=== PATIENT | male | born 1955 | race Hispanic/Latino ===

== ENCOUNTER 2017-02-18 10:06 | Inpatient (IN) | payer BC ==
[2017-02-18 10:15] VITALS: BMI 47.2
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
[2017-02-18 10:46] LABS: BASO # 0.01 K/mm3 (0.0-2.0); BASO % 0.2 % (0.0-3.0); EOS % 0.2 % (1.5-5.0); GRAN # 5.59 (1.4-6.5); GRAN % 88.8 % (50.0-68.0); LYMPH # 0.2 (1.2-3.4); LYMPH % 2.5 % (22.0-35.0); MEAN CELL VOLUME 94.7 fl (80.0-105.0); MEAN CORPUSCULAR HGB CONC 33.8 g/dl (31.0-37.0); MEAN PLATELET VOLUME 10.8 fl (7.0-11.0); MONO # 0.5 (0.1-0.6); MONO % 8.3 % (1.0-6.0); PLATELET COUNT 120 10^3/uL (120.0-450.0); RBC 4.37 10^6/uL (3.5-6.1); RED CELL DISTRIBUTION WIDTH 15.1 % (11.5-14.5); WHITE BLOOD COUNT 6.3 10^3/ul (4.5-11.0)
[2017-02-18 10:47] LABS: VENOUS BLOOD GAS BASE EXCESS -0.2 mmol/L (0.0-2.0); VENOUS BLOOD GAS PO2 108 mm/Hg (30-55); VENOUS BLOOD PH 7.47 (7.32-7.43)
[2017-02-18 10:56] LABS: INR 1.11 (0.93-1.08); PARTIAL THROMBOPLASTIN TIME 23.5 Seconds (23.7-30.8)
[2017-02-18] MEDS ORDERED: Sodium Chloride 0.9% 1,000 ML IV STA (11:06)
[2017-02-18] MEDS ORDERED: Vancomycin 1gm in NS 250ml 1 GM/250 ML BAG IVPB STA (11:09)
[2017-02-18] MEDS ORDERED: Piperacillin/Tazobact 3.375 gm 100 ML IVPB STA (11:09)
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
[2017-02-18 11:21] LABS: ALB/GLOB RATIO 1.1 (1.1-1.8); ALBUMIN 3.5 g/dL (3.0-4.8); CALCIUM 8.6 mg/dL (8.4-10.5); MAGNESIUM 1.5 mg/dL (1.7-2.2)
[2017-02-18] MEDS ORDERED: Potassium & Sodium Phosphate PO STA (11:29)
[2017-02-18 11:45] LABS: URINE BILIRUBIN SMALL (NEGATIVE); URINE BLOOD TRACE-LYSED (NEGATIVE); URINE GLUCOSE (UA) NEGATIVE (NEGATIVE); URINE LEUKOCYTE ESTERASE MODERATE Leu/uL (NEGATIVE); URINE NITRATE NEGATIVE (NEGATIVE); URINE PROTEIN 100 mg/dL (<30 mg/dL); URINE UROBILINOGEN 0.2 E.U./dL (<1 E.U./dL)
[2017-02-18 11:46] LABS: URINE APPEARANCE SL CLOUDY (CLEAR); URINE COLOR YELLOW (YELLOW)
[2017-02-18 12:04] LABS: URINE BACTERIA MANY (NEG); URINE EPITHELIAL CELLS 0 - 2 /hpf (0-5); URINE RBC 0 - 2 /hpf (0-2)
[2017-02-18 12:15] LABS: TROPONIN I 0.12 ng/mL
[2017-02-18 13:26] LABS: VENOUS BLOOD GAS BASE EXCESS -3.6 mmol/L (0.0-2.0); VENOUS BLOOD GAS PO2 153 mm/Hg (30-55); VENOUS BLOOD PH 7.39 (7.32-7.43)
[2017-02-18] MEDS ORDERED: Magnesium Sulfate 1 gm in D5W 1 GM/100 ML BAG IVPB ONE (13:28)
[2017-02-18] MEDS ORDERED: Potassium Chloride 20 mEq ER Tab PO STA (13:28)
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
--- NOTE | 2017-02-18 15:56 | CARD ---
APPROVED REPORT EKG Measurement Heart [id number] <Conclusion> Sinus tachycardia Nonspecific ST abnormality Abnormal ECG
[2017-02-18] MEDS ORDERED: Pneumococcal 23-Valent Vaccine IM ONE (17:23)
--- NOTE | 2017-02-18 19:42 | PCM.SEPTIC ---
Sepsis Progress Note - Reassessment Type Date of Evaluation: 02/18/17 Time of Evaluation: 17:40 Reassessment Type: Non-invasive reassessment - Non Invasive Reassessment Were the most recent vital sign reviewed: Yes Vital Sign (Latest): Temp Pulse Resp BP Pulse Ox 100.0 F H 93 H 18 104/59 L 96 02/18/17 18:00 02/18/17 18:00 02/18/17 18:00 02/18/17 18:00 02/18/17 14:50 Cardiovascular: Yes: Regular Rate, Rhythm Respiratory: Yes: Decreased Breath Sounds (decreased breath sounds at left base) . No: Respiratory Distress Capillary Refill: Normal (Less than 2 sec) Pulses: Normal Dorsalis Pedis Skin: Normal Color, Warm, Dry
[2017-02-18] MEDS: Piperacillin/Tazobact 3.375 gm 100 ML IVPB SCH (23:48)
[2017-02-19 05:49] LABS: VENOUS BLOOD GAS PO2 52 mm/Hg (30-55); VENOUS BLOOD PH 7.29 (7.32-7.43)
[2017-02-19] MEDS: Piperacillin/Tazobact 3.375 gm 100 ML IVPB SCH ×4 (05:56→23:45)
[2017-02-19] MEDS: Pantoprazole 40 mg EC Tab PO SCH (05:56)
[2017-02-19] MEDS: Potassium Chloride 10 mEq ER Tab PO SCH (08:35)
--- NOTE | 2017-02-19 09:06 | CT ---
PROCEDURE: CT Abdomen and Pelvis without intravenous contrast HISTORY: r/o obstruction COMPARISON: None. TECHNIQUE: Technique. Contrast Dose: Radiation dose: Total exam DLP = 1756 mGy-cm. This CT exam was performed using one or more of the following dose reduction techniques: Automated exposure control, adjustment of the mA and/or kV according to patient size, and/or use of iterative reconstruction technique. FINDINGS: LOWER THORAX: Unremarkable. Elevated right hemidiaphragm LIVER: Unremarkable. No gross lesion or ductal dilatation. GALLBLADDER AND BILE DUCTS: Status post cholecystectomy and gastric sleeve surgery.. PANCREAS: Unremarkable. No gross lesion or ductal dilatation. SPLEEN: Unremarkable. ADRENALS: Unremarkable. No mass. KIDNEYS AND URETERS: Unremarkable. No hydronephrosis. No solid mass. VASCULATURE: Unremarkable. No aortic aneurysm. BOWEL: Unremarkable. No obstruction. No gross mural thickening. APPENDIX: Unremarkable. Normal appendix. PERITONEUM: Unremarkable. No free fluid. No free air. LYMPH NODES: Multiple mildly enlarged lymph nodes along the right hemipelvis associated mild inflammatory changes extending into the right groin and inguinal region which are nonspecific in etiology; please correlate clinically. BLADDER: Unremarkable. REPRODUCTIVE: Unremarkable. BONES: No acute fracture. OTHER FINDINGS: None. IMPRESSION: Multiple mildly enlarged lymph nodes along the right hemipelvis associated mild inflammatory changes extending into the right groin and inguinal region which are nonspecific in etiology; please correlate clinically.
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
[2017-02-19 10:22] LABS: VENOUS BLOOD GAS BASE EXCESS -5.7 mmol/L (0.0-2.0); VENOUS BLOOD GAS PO2 150 mm/Hg (30-55); VENOUS BLOOD PH 7.29 (7.32-7.43)
[2017-02-19] MEDS: Potassium & Sodium Phosphate PO SCH ×3 (10:34→18:02)
[2017-02-19] MEDS: FOLIC ACID 0.4 MG PO SCH (10:46)
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
[2017-02-20] MEDS ORDERED: Potassium Phosphate 3 mmol/ml Inj IV ONE (00:12)
[2017-02-20] MEDS ORDERED: Magnesium Sulfate 1 gm in D5W 1 GM/100 ML BAG IVPB ONE (00:13)
[2017-02-20] MEDS ORDERED: Potassium Phosphate 30 MMOLE in Sodium Chloride 0.9% 250 ML IVPB ONE (00:30)
[2017-02-20 01:40] LABS: BARBITURATES, UR NEGATIVE (NEGATIVE); BENZODIAZEPINES, UR NEGATIVE (NEGATIVE); OPIATES, UR NEGATIVE (NEGATIVE); PHENCYCLIDINE, UR NEGATIVE (NEGATIVE)
[2017-02-20] MEDS: Pantoprazole 40 mg EC Tab PO SCH (06:06)
[2017-02-20] MEDS: Piperacillin/Tazobact 3.375 gm 100 ML IVPB SCH ×2 (06:07→13:16)
[2017-02-20 06:53] LABS: MEAN CELL VOLUME 95.6 fl (80.0-105.0); MEAN CORPUSCULAR HEMOGLOBIN 33.3 pg (25.0-35.0); MEAN CORPUSCULAR HGB CONC 34.9 g/dl (31.0-37.0); MEAN PLATELET VOLUME 12.1 fl (7.0-11.0); RBC 3.6 10^6/uL (3.5-6.1); RED CELL DISTRIBUTION WIDTH 15.6 % (11.5-14.5); WHITE BLOOD COUNT 10.5 10^3/ul (4.5-11.0)
[2017-02-20 07:22] LABS: BLOOD UREA NITROGEN 28 mg/dL (7-21); CALCIUM 7.6 mg/dL (8.4-10.5); GFR AFRICAN-AMERICAN > 60; GFR NON-AFRICAN AMERICAN 51; HDL CHOLESTEROL 26 mg/dL (29-60)
[2017-02-20 07:26] LABS: % IRON SATURATION 7 % (20-55); IRON 14 ug/dL (45-180); TOTAL IRON BINDING CAPACITY 210 ug/dL (261-462)
[2017-02-20 07:33] LABS: LDL CHOLESTEROL < 30 mg/dL (0-129)
[2017-02-20] MEDS: Potassium Chloride 10 mEq ER Tab PO SCH (08:33)
[2017-02-20] MEDS: Potassium & Sodium Phosphate PO SCH ×3 (11:00→17:47)
[2017-02-20] MEDS: Enoxaparin 40 mg Syringe SC SCH (11:01)
[2017-02-20] MEDS: FOLIC ACID 0.4 MG PO SCH (11:02)
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
[2017-02-20 12:27] LABS: FOLATE 5.3 ng/mL
--- NOTE | 2017-02-20 13:13 | PCM.EEG ---
Electroencephalogram Report - Electroencephalogram Report Procedure Date: 02/20/17 Interpretation: Indication: Loss of consciousness with confusion. Medications: Reviewed. Condition: Awake and drowsy. Technical: This is a digitally recorded electroencephalogram. The international 10-20 electrode placement system is used for scalp electrode placement. Eighteen channels of scalp EEG are recorded Another channel was used for for ECG. The data are stored digitally and reviewed in reformatted montages for optimal display. Background : 9 to 10 hertz alpha activity was seen. Maximal over the posterior head region. These activities are symmetric on both sides. They attenuated with eye opening. Small amount of beta activities are seen. Stage I sleep was noted, but stage II sleep was not achieved. There was no change with photic stimulation. Impression: Focal abnormality: Periodic lateralized discharge was seen. Mainly over the Left temporal area. This consisted of spike and sharp wave discharges. Impression: This EEG is abnormal. Epileptiform discharge was seen. This can represent a potential seizure focus. Clinical correlation is needed.
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
--- NOTE | 2017-02-20 13:48 | PN ---
DATE: 02/20/2017 PULMONARY PROGRESS NOTE REFERRING PHYSICIAN: Dr. Hernandez. SUBJECTIVE: He is out of bed to chair, could not use BiPAP at nighttime yesterday. No nausea, vomiting, or diarrhea. Does have a leg swelling. OBJECTIVE: GENERAL: In no acute distress. VITAL SIGNS: Temp is 98, heart rate is 69, respiratory rate is 20, blood pressure 128/78, pulse ox 96% on room air. HEENT: Moist mucous membranes. Crowded airway. Mallampati score is IV. NECK: Supple. No JVD. LUNGS: Fair airflow with rhonchi. HEART: S1 and S2. ABDOMEN: Soft and nontender. Obese. EXTREMITIES: There is no edema. NEUROLOGIC: Awake and alert. Follows simple command. MEDICATIONS: He is on aspirin 81 mg daily, ferrous sulfate 325 mg twice a day, potassium 10 mEq daily, Lasix 20 mg twice daily, Lovenox 40 mg subcu daily, Neutra-Phos 1 pack 3 times a day, Protonix 40 mg daily, Tylenol p.r.n. basis, Zosyn 3.375 g IV q. 6 hours and allopurinol 300 mg daily. LABORATORY DATA: Shows hemoglobin 12.0, hematocrit 34.4, WBC 10.5, platelet count is 104. Sodium 141, potassium 3.9, chloride 109, bicarbonate is 24, BUN 28, creatinine 1.4, glucose is 74, calcium is 7.6, iron is 14, cholesterol is 66, B12 is 509 and folate is 5.3. Microbiology: Blood culture has a strep agalactiae group B. Urine culture has no growth. Echocardiogram is done, report is pending. IMPRESSION AND PLAN: Bacteriemia, renal insufficiency, morbid obesity, sleep apnea syndrome, coronary artery disease, history of gastric bypass surgery in the past, on antibiotics, fall precautions, encourage BiPAP use overnight, gastric prophylaxis and DVT prophylaxis. We will follow up with you. Nidia Beckman MD
--- NOTE | 2017-02-20 15:31 | CP.PCM.PN ---
Subjective - Date & Time of Evaluation Date of Evaluation: 02/20/17 Time of Evaluation: 08:50 - Subjective Subjective: Comfortable, not in distress, afebrile, had some scratches on his right leg ( posterior portion) but they are healing. Objective - Vital Signs/Intake and Output Vital Signs (last 24 hours): Temp Pulse Resp BP Pulse Ox 97.8 F 67 20 129/65 96 02/20/17 06:00 02/20/17 06:00 02/20/17 06:00 02/20/17 06:00 02/20/17 06:00 Intake and Output: 02/20/17 02/20/17 06:59 18:59 Intake Total 1125 Output Total 800 Balance 325 - Medications Medications: Current Medications Acetaminophen (Tylenol 325mg Tab) 650 mg PO Q6H PRN PRN Reason: Fever >100.4 F Last Admin: 02/18/17 23:48 Dose: 650 mg Allopurinol (Zyloprim) 300 mg PO DAILY [facility] Last Admin: 02/19/17 10:34 Dose: 300 mg Aspirin (Aspirin Chewable) 81 mg PO DAILY [facility] Last Admin: 02/19/17 10:35 Dose: 81 mg Enoxaparin Sodium (Lovenox) 40 mg SC DAILY [facility] PRN Reason: Protocol Ferrous Sulfate (Feosol) 324 mg PO BID [facility] Last Admin: 02/19/17 18:04 Dose: 324 mg Furosemide (Lasix) 40 mg PO BID [facility] Last Admin: 02/19/17 18:01 Dose: Not Given Home Med (Home Med) 1 unit PO DAILY [facility] Last Admin: 02/19/17 10:46 Dose: Not Given Piperacillin Sod/Tazobactam Sod (Zosyn 3.375 In Ns 100ml) 100 mls @ 200 mls/hr IVPB Q6 [facility] PRN Reason: Protocol Stop: 02/26/17 00:01 Last Admin: 02/20/17 06:07 Dose: 200 mls/hr Pantoprazole Sodium (Protonix Ec Tab) 40 mg PO 0600 [facility] Last Admin: 02/20/17 06:06 Dose: 40 mg Potassium Chloride (Klor-Con 10) 10 meq PO BRK [facility] Last Admin: 02/20/17 08:33 Dose: 10 meq Potassium Phos/Sodium Phos (Neutra-Phos) 1 pkt PO TID [facility] Last Admin: 02/19/17 18:02 Dose: 1 pkt - Labs Labs: 02/20/17 06:15 02/20/17 06:15 PT 12.0 Seconds (9.9-11.8) H 02/18/17 10:30 INR 1.11 (0.93-1.08) H 02/18/17 10:30 APTT 23.5 Seconds (23.7-30.8) L 02/18/17 10:30 - Constitutional Appears: Non-toxic, No Acute Distress - Head Exam Head Exam: NORMAL INSPECTION - ENT Exam ENT Exam: Mucous Membranes Moist - Neck Exam Neck Exam: absent: Lymphadenopathy, Meningismus - Respiratory Exam Respiratory Exam: Decreased Breath Sounds - Cardiovascular Exam Cardiovascular Exam: +S1, +S2 - GI/Abdominal Exam GI & Abdominal Exam: Soft. absent: Tenderness - Extremities Exam Additional comments: posterior right leg with some scratches that are healing Assessment and Plan - Assessment and Plan (Free Text) Plan: Assessment Severe Sepsis with acute renal failure due to Group B Strep bacteremia, source to be determined obesity with BMI 34 Plan follow up repeat blood cx done today; will switch antibiotics to Cefazolin follow up 2D echo results will trend fever curve and continue to monitor clinically
[2017-02-20] MEDS: ceFAZolin 2 GM in Sodium Chloride 0.9% 100 ML IVPB SCH ×2 (17:42→21:39)
--- NOTE | 2017-02-20 18:08 | CARD ---
APPROVED REPORT EXAM: Two-dimensional and M-mode echocardiogram with Doppler and color Doppler. INDICATION Infection:Rule out subacute bacterial endocarditis 2D DIMENSIONS Left Atrium (2D)4.4 (1.6-4.0cm)IVSd1.2 (0.7-1.1cm) LVDd5.2 (3.9-5.9cm)PWd1.1 (0.7-1.1cm) LVDs3.4 (2.5-4.0cm)FS (%) 34.8 % LVEF (%)63.7 (>50%) M-Mode DIMENSIONS Aortic Root2.70 (2.2-3.7cm)Aortic Cusp Exc.2.00 (1.5-2.0cm) Aortic Valve AoV Peak Cdkgjzgp166.0cm/Les Peak GR.7mmHg Mitral Valve MV E Yfqwxnpq45.7cm/sMV A Nryedbka29.1cm/sE/A ratio1.9 TDI E/Lateral E'0.0E/Medial E'0.0 Tricuspid Valve TR Peak Vowioual293hs/sRAP [id number] Peak Gr.15mmHg [id number] LEFT VENTRICLE The left ventricle is normal size. There is borderline to mild concentric left ventricular hypertrophy. The left ventricular function is normal.EF-60-65% There is normal LV segmental wall motion. The left ventricular diastolic function is normal. No left ventricle thrombus noted on this study. There is no ventricular septal defect visualized. There is no left ventricular aneurysm. There is no mass noted in the left ventricle. RIGHT VENTRICLE The right ventricle is normal size. There is normal right ventricular wall thickness. The right ventricular systolic function is normal. ATRIA The left atrium is mildly dilated. The right atrium size is normal. The interatrial septum is intact with no evidence for an atrial septal defect. AORTIC VALVE The aortic valve is thickened but opens well. No aortic regurgitation is present. There is no aortic valvular stenosis. There is no aortic valvular vegetation. MITRAL VALVE The mitral valve is thickened but opens well. Mitral regurgitation is trace. There is no mitral valve stenosis. There is no evidence of mitral valve prolapse. TRICUSPID VALVE The tricuspid valve leaflets are thickened , but open well. There is trace tricuspid regurgitation.RVSP-25 mmof hg. There is no tricuspid valve stenosis. There is no tricuspid valve prolapse or vegetation. PULMONIC VALVE The pulmonary valve is normal in structure. There is no pulmonic valvular regurgitation. GREAT VESSELS The aortic root is normal in size. The ascending aorta is normal in size. The pulmonary artery is normal. The IVC is normal in size and collapses >50% with inspiration. PERICARDIAL EFFUSION There is no pleural effusion. There is no pericardial effusion. <Conclusion> The left ventricle is normal size. There is borderline to mild concentric left ventricular hypertrophy. The left ventricular function is normal.EF-60-65% Mitral regurgitation is trace. There is trace tricuspid regurgitation.RVSP-25 mmof hg. The IVC is normal in size and collapses >50% with inspiration. There is no pericardial effusion. No vegetation or thrombus noted.
[2017-02-20] MEDS ORDERED: Gadodiamide 287 MG/ML VIAL (15ML) IV ONE (18:51)
[2017-02-20] MEDS ORDERED: Sodium Chloride 0.9% 100 ML IV SCH (20:27)
[2017-02-20] MEDS ORDERED: Sodium Chloride 0.9% 1,000 ML IV SCH (20:44)
--- NOTE | 2017-02-21 01:25 | CP.PCM.PN ---
Subjective - Date & Time of Evaluation Date of Evaluation: 02/20/17 Time of Evaluation: 08:30 - Subjective Subjective: Comfortable, not in distress, afebrile, had some scratches on his right leg ( posterior portion) but they are healing.went for mri of head with and without contrast Objective - Vital Signs/Intake and Output Vital Signs (last 24 hours): Temp Pulse Resp BP Pulse Ox 98.8 F 67 20 116/57 L 96 02/20/17 17:50 02/20/17 17:50 02/20/17 17:50 02/20/17 17:50 02/20/17 06:00 - Medications Medications: Current Medications Acetaminophen (Tylenol 325mg Tab) 650 mg PO Q6H PRN PRN Reason: Fever >100.4 F Last Admin: 02/18/17 23:48 Dose: 650 mg Allopurinol (Zyloprim) 300 mg PO DAILY [facility] Last Admin: 02/20/17 11:01 Dose: 300 mg Aspirin (Aspirin Chewable) 81 mg PO DAILY [facility] Last Admin: 02/20/17 11:02 Dose: 81 mg Enoxaparin Sodium (Lovenox) 40 mg SC DAILY [facility] PRN Reason: Protocol Last Admin: 02/20/17 11:01 Dose: 40 mg Ferrous Sulfate (Feosol) 324 mg PO BID [facility] Last Admin: 02/20/17 17:42 Dose: 324 mg Furosemide (Lasix) 40 mg PO BID [facility] Last Admin: 02/20/17 17:42 Dose: 40 mg Home Med (Home Med) 1 unit PO DAILY [facility] Last Admin: 02/20/17 11:02 Dose: Not Given Cefazolin Sodium 2 gm/ Sodium (Chloride) 100 mls @ 200 mls/hr IVPB Q8 [facility] PRN Reason: Protocol Last Admin: 02/20/17 21:39 Dose: 200 mls/hr Sodium Chloride (Sodium Chloride 0.9%) 1,000 mls @ 100 mls/hr IV .Q10H [facility] Last Admin: 02/20/17 21:00 Dose: 100 mls/hr Levetiracetam (Keppra) 500 mg PO BID [facility] Last Admin: 02/20/17 17:42 Dose: 500 mg Pantoprazole Sodium (Protonix Ec Tab) 40 mg PO 0600 [facility] Last Admin: 02/20/17 06:06 Dose: 40 mg Potassium Chloride (Klor-Con 10) 10 meq PO BRK [facility] Last Admin: 02/20/17 08:33 Dose: 10 meq Potassium Phos/Sodium Phos (Neutra-Phos) 1 pkt PO TID [facility] Last Admin: 02/20/17 17:47 Dose: 1 pkt - Labs Labs: 02/20/17 06:15 02/20/17 06:15 PT 12.0 Seconds (9.9-11.8) H 02/18/17 10:30 INR 1.11 (0.93-1.08) H 02/18/17 10:30 APTT 23.5 Seconds (23.7-30.8) L 02/18/17 10:30 - Constitutional Appears: Well - Head Exam Head Exam: ATRAUMATIC, NORMAL INSPECTION, NORMOCEPHALIC - Eye Exam Eye Exam: EOMI, Normal appearance, PERRL Pupil Exam: NORMAL ACCOMODATION, PERRL - ENT Exam ENT Exam: Mucous Membranes Moist, Normal Exam - Neck Exam Neck Exam: Full ROM, Normal Inspection. absent: Lymphadenopathy - Respiratory Exam Respiratory Exam: Clear to Ausculation Bilateral, NORMAL BREATHING PATTERN - Cardiovascular Exam Cardiovascular Exam: REGULAR RHYTHM, +S1, +S2. absent: Murmur - GI/Abdominal Exam GI & Abdominal Exam: Soft, Normal Bowel Sounds. absent: Tenderness - Rectal Exam Rectal Exam: NORMAL INSPECTION - Exam Exam: Circumcision, NORMAL INSPECTION External exam: NORMAL EXTERNAL EXAM Speculum exam: NORMAL SPECULUM EXAM Bimanual exam: NORMAL BIMANUAL EXAM - Extremities Exam Extremities Exam: Full ROM, Normal Capillary Refill, Normal Inspection. absent : Joint Swelling, Pedal Edema - Back Exam Back Exam: NORMAL INSPECTION - Neurological Exam Neurological Exam: Alert, Awake, CN II-XII Intact, Normal Gait, Oriented x3 - Psychiatric Exam Psychiatric exam: Normal Affect, Normal Mood - Skin Skin Exam: Dry, Intact, Normal Color, Warm Assessment and Plan - Assessment and Plan (Free Text) Assessment: Likely due to epileptiform activity as was noted in the left temporal lobe on EEG recording. An MRI of the brain is done to evaluate for a possible underlying lesion ,with and without contrast. neuro started Keppra at 500 mg BID for seizure prophylaxis. Plan: Severe Sepsis with acute renal failure due to Group B Strep bacteremia, source to be determined obesity with BMI 34 Plan follow up repeat blood cx done today; will switch antibiotics to Cefazolin follow up 2D echo results will trend fever curve and continue to monitor clinically
[2017-02-21] MEDS: ceFAZolin 2 GM in Sodium Chloride 0.9% 100 ML IVPB SCH ×2 (06:08→15:14)
[2017-02-21] MEDS: Pantoprazole 40 mg EC Tab PO SCH (06:08)
[2017-02-21 07:04] VITALS: O2SAT 94
--- NOTE | 2017-02-21 08:25 | MRI ---
PROCEDURE: Magnetic Resonance Angiography Brain HISTORY: syncope COMPARISON: None available. TECHNIQUE: 3D time of flight MR angiography of the intracranial arteries was performed. Rotating maximum intensity projection images were generated. FINDINGS: INTERNAL CEREBRAL ARTERIES: Unremarkable. The skull base, petrous, cavernous and supraclinoid segments are bilaterally widely patient. ANTERIOR CEREBRAL ARTERIES: Unremarkable. A1 and A2 segments are widely patent. Smaller distal branches unremarkable, as visualized. MIDDLE CEREBRAL ARTERIES: Unremarkable. M1 and M2 segments are widely patent. Perisylvian branches grossly symmetric. POSTERIOR CIRCULATION: Basilar Artery: Unremarkable. Distal Vertebral Arteries: Unremarkable. Posterior Cerebral Arteries: Unremarkable. Posterior Inferior Cerebellar Arteries: Unremarkable. ANEURYSM/ VASCULAR MALFORMATIONS: None. OTHER FINDINGS: The report concurs with the preliminary [facility] report IMPRESSION: Unremarkable MR angiography of the brain.
--- NOTE | 2017-02-21 08:28 | MRI ---
PROCEDURE: MR Angiography of the neck without contrast HISTORY: syncope COMPARISON: None available. TECHNIQUE: 3D [id number] angiography of the neck was performed. Rotating maximum intensity projection images of the cervical carotid and vertebral arteries were generated. The origins of the common carotid arteries were not visualized, which is a limitation inherent to the non-contrast time of flight technique. Study was limited to 1 sequence. The patient cannot tolerate any further scanning. There was also motion artifact. FINDINGS: RIGHT CAROTID ARTERIES: There is no evidence of significant stenosis or occlusion LEFT CAROTID ARTERIES: No evidence of significant stenosis or occlusion VERTEBRAL ARTERIES: Right Vertebral Artery: Normal. Left Vertebral Artery: Normal. OTHER FINDINGS: The report concurs with the preliminary [facility] report IMPRESSION: Limited study. No evidence of severe stenosis or occlusion
--- NOTE | 2017-02-21 08:38 | CT ---
PROCEDURE: CT Chest without contrast HISTORY: rule out septic emboli COMPARISON: None. TECHNIQUE: Contiguous axial images were obtained through the chest without intravenous contrast enhancement. Sagittal and coronal reconstructions were performed. Radiation dose (DLP): 93.11 mGy-cm. This CT exam was performed using one or more of the following dose reduction techniques: Automated exposure control, adjustment of the mA and/or kV according to patient size, and/or use of iterative reconstruction technique. FINDINGS: LUNGS: No pulmonary infiltrate. 3 mm nodule apical segment right upper lobe. No other pulmonary mass identified. MEDIASTINUM: Unremarkable thoracic aorta. No aneurysm. Normal-sized heart. Coronary arterial calcification. Main pulmonary artery unremarkable. No vascular congestion. No lymphadenopathy. PLEURA: No pleural effusion. Pleural-based linear scar superior segment left lower lobe. BONES: No fracture. No destructive lesion. UPPER ABDOMEN: Status post cholecystectomy. Unspecified prior gastric surgery with multiple clips. OTHER FINDINGS: None. IMPRESSION: No evidence of septic emboli. No pulmonary infiltrate. Minor findings as above.
[2017-02-21] MEDS: Enoxaparin 40 mg Syringe SC SCH (09:52)
[2017-02-21] MEDS: Potassium & Sodium Phosphate PO SCH ×2 (09:52→15:14)
[2017-02-21] MEDS: Potassium Chloride 10 mEq ER Tab PO SCH (09:53)
[2017-02-21] MEDS ORDERED: Gadodiamide 287 MG/ML VIAL (20ML) IV ONE (10:49)
--- NOTE | 2017-02-21 11:52 | MRI ---
PROCEDURE: MRI BRAIN WITH AND WITHOUT CONTRAST HISTORY: possible seizure COMPARISON: 02/18/2017 CT TECHNIQUE: Multiplanar, multisequence MR images of the brain were obtained with and without intravenous contrast enhancement. FINDINGS: HEMORRHAGE: None DWI: No evidence of an acute or early subacute infarction. BRAIN PARENCHYMA: No mass,mass effect or edema. No atrophy or chronic microvascular ischemic changes. ENHANCEMENT: No abnormal intracranial enhancement. VENTRICLES: Unremarkable. No hydrocephalus. CRANIUM: Unremarkable. ORBITS: Grossly unremarkable. PARANASAL SINUSES/MASTOIDS: Clear VASCULAR SYSTEM: Skull base flow voids intact. OTHER FINDINGS: None . IMPRESSION: Unremarkable pre and post contrast enhanced MRI of the brain.
--- NOTE | 2017-02-21 13:19 | CP.PCM.PN ---
Subjective - Date & Time of Evaluation Date of Evaluation: 02/21/17 Time of Evaluation: 13:17 - Subjective Subjective: Mr. Bravo was seen and examined today at bedside. He was found in NAD. There were no acute events overnight. The patient had no complaints. I discussed the results of the MRI with him, which were negative for any significant findings. Objective - Vital Signs/Intake and Output Vital Signs (last 24 hours): Temp Pulse Resp BP Pulse Ox 97.9 F 55 L 18 136/68 94 L 02/21/17 06:00 02/21/17 06:00 02/21/17 06:00 02/21/17 09:50 02/21/17 06:00 Intake and Output: 02/21/17 02/21/17 06:59 18:59 Intake Total 800 1100 Output Total 1100 Balance -300 1100 - Medications Medications: Current Medications Acetaminophen (Tylenol 325mg Tab) 650 mg PO Q6H PRN PRN Reason: Fever >100.4 F Last Admin: 02/18/17 23:48 Dose: 650 mg Allopurinol (Zyloprim) 300 mg PO DAILY [facility] Last Admin: 02/21/17 09:52 Dose: 300 mg Aspirin (Aspirin Chewable) 81 mg PO DAILY [facility] Last Admin: 02/21/17 09:50 Dose: 81 mg Enoxaparin Sodium (Lovenox) 40 mg SC DAILY [facility] PRN Reason: Protocol Last Admin: 02/21/17 09:52 Dose: 40 mg Ferrous Sulfate (Feosol) 324 mg PO BID [facility] Last Admin: 02/20/17 17:42 Dose: 324 mg Furosemide (Lasix) 40 mg PO BID [facility] Last Admin: 02/21/17 09:50 Dose: 40 mg Home Med (Home Med) 1 unit PO DAILY [facility] Last Admin: 02/20/17 11:02 Dose: Not Given Cefazolin Sodium 2 gm/ Sodium (Chloride) 100 mls @ 200 mls/hr IVPB Q8 [facility] PRN Reason: Protocol Last Admin: 02/21/17 06:08 Dose: 200 mls/hr Sodium Chloride (Sodium Chloride 0.9%) 1,000 mls @ 100 mls/hr IV .Q10H [facility] Last Admin: 02/20/17 21:00 Dose: 100 mls/hr Levetiracetam (Keppra) 500 mg PO BID [facility] Last Admin: 02/21/17 09:53 Dose: 500 mg Pantoprazole Sodium (Protonix Ec Tab) 40 mg PO 0600 [facility] Last Admin: 02/21/17 06:08 Dose: 40 mg Potassium Chloride (Klor-Con 10) 10 meq PO BRK [facility] Last Admin: 02/21/17 09:53 Dose: 10 meq Potassium Phos/Sodium Phos (Neutra-Phos) 1 pkt PO TID [facility] Last Admin: 02/21/17 09:52 Dose: 1 pkt - Labs Labs: 02/20/17 06:15 02/20/17 06:15 PT 12.0 Seconds (9.9-11.8) H 02/18/17 10:30 INR 1.11 (0.93-1.08) H 02/18/17 10:30 APTT 23.5 Seconds (23.7-30.8) L 02/18/17 10:30 - Neurological Exam Neurological Exam: Awake, CN II-XII Intact, Normal Gait, Oriented x3, Reflexes Normal Neuro motor strength exam: Left Upper Extremity: 5, Right Upper Extremity: 5, Left Lower Extremity: 5, Right Lower Extremity: 5 Assessment and Plan (1) Syncope Assessment & Plan: Likely seizure with abnormal EEG. Will continue Keppra for 6 months and repeat EEG as outpatient. No further recommendations at this time. Status: Acute
[2017-02-21] MEDS: FOLIC ACID 0.4 MG PO SCH (13:54)
--- NOTE | 2017-02-21 15:16 | CP.PCM.PN ---
Subjective - Date & Time of Evaluation Date of Evaluation: 02/21/17 Time of Evaluation: 09:25 - Subjective Subjective: Comfortable on a chair, not in distress, afebrile, no leg pain ,no SOB, no chest pain. Objective - Vital Signs/Intake and Output Vital Signs (last 24 hours): Temp Pulse Resp BP Pulse Ox 97.3 F L 59 L 18 112/68 96 02/21/17 00:01 02/21/17 00:01 02/21/17 00:01 02/21/17 00:01 02/21/17 00:01 - Medications Medications: Current Medications Acetaminophen (Tylenol 325mg Tab) 650 mg PO Q6H PRN PRN Reason: Fever >100.4 F Last Admin: 02/18/17 23:48 Dose: 650 mg Allopurinol (Zyloprim) 300 mg PO DAILY [facility] Last Admin: 02/20/17 11:01 Dose: 300 mg Aspirin (Aspirin Chewable) 81 mg PO DAILY [facility] Last Admin: 02/20/17 11:02 Dose: 81 mg Enoxaparin Sodium (Lovenox) 40 mg SC DAILY [facility] PRN Reason: Protocol Last Admin: 02/20/17 11:01 Dose: 40 mg Ferrous Sulfate (Feosol) 324 mg PO BID [facility] Last Admin: 02/20/17 17:42 Dose: 324 mg Furosemide (Lasix) 40 mg PO BID [facility] Last Admin: 02/20/17 17:42 Dose: 40 mg Home Med (Home Med) 1 unit PO DAILY [facility] Last Admin: 02/20/17 11:02 Dose: Not Given Cefazolin Sodium 2 gm/ Sodium (Chloride) 100 mls @ 200 mls/hr IVPB Q8 [facility] PRN Reason: Protocol Last Admin: 02/21/17 06:08 Dose: 200 mls/hr Sodium Chloride (Sodium Chloride 0.9%) 1,000 mls @ 100 mls/hr IV .Q10H [facility] Last Admin: 02/20/17 21:00 Dose: 100 mls/hr Levetiracetam (Keppra) 500 mg PO BID [facility] Last Admin: 02/20/17 17:42 Dose: 500 mg Pantoprazole Sodium (Protonix Ec Tab) 40 mg PO 0600 [facility] Last Admin: 02/21/17 06:08 Dose: 40 mg Potassium Chloride (Klor-Con 10) 10 meq PO BRK [facility] Last Admin: 02/20/17 08:33 Dose: 10 meq Potassium Phos/Sodium Phos (Neutra-Phos) 1 pkt PO TID [facility] Last Admin: 02/20/17 17:47 Dose: 1 pkt - Labs Labs: 02/20/17 06:15 02/20/17 06:15 PT 12.0 Seconds (9.9-11.8) H 02/18/17 10:30 INR 1.11 (0.93-1.08) H 02/18/17 10:30 APTT 23.5 Seconds (23.7-30.8) L 02/18/17 10:30 - Constitutional Appears: Non-toxic, No Acute Distress - Head Exam Head Exam: NORMAL INSPECTION - ENT Exam ENT Exam: Mucous Membranes Moist - Neck Exam Neck Exam: absent: Meningismus - Respiratory Exam Respiratory Exam: Decreased Breath Sounds - Cardiovascular Exam Cardiovascular Exam: +S1, +S2 - GI/Abdominal Exam GI & Abdominal Exam: Soft. absent: Tenderness - Extremities Exam Additional comments: right posterior leg with scaly lesions, but no open wounds Assessment and Plan - Assessment and Plan (Free Text) Plan: Assessment Severe Sepsis with acute renal failure due to Group B Strep bacteremia, source to be determined, may need to rule out endocarditis morbid obesity with BMI 41 Plan follow up repeat blood cx done today; continue Cefazolin follow up 2D echo did not show vegetations, but patient may need MONO especially if repeat blood cx are still positive will trend fever curve and continue to monitor clinically
[2017-02-21 17:48] VITALS: BP 118/65; PULSE 58; RESP 16; TEMP 97.8
--- NOTE | 2017-02-21 18:53 | CP.PCM.PN ---
Subjective - Date & Time of Evaluation Date of Evaluation: 02/21/17 Time of Evaluation: 18:00 - Subjective Subjective: Patient has decided to leave AMA for personal reasons, His daughter is here to take him to a hospital near his home in [facility]. Pt was admitted for Urosepsis and Syncope,has Bacteremia is being treated with antibiotics. He is alert, oriented x 3 and is ambulatory . His vital signs are stable He does not want to stay here any longer and refuses any further examinations , tests or or treatment at this facility. Since pt has bacteremia,he was told of possible consequences of not getting the treatment he needs,namely,worsening of sepsis,development of abscesses in the brain,spine, other parts of the body and this can lead to seizures,coma, paralysis, and . If the bacteria settles on the valves of the heart,it can cause endocarditis.and this can lead to valvular dysfunction and/or . Patient and his daughter stated they understood what they are told. Thereafter pt signed AMA and left with his daughter. Advised to return to the ER if needed. Time spent with patient: 35 mins. Objective - Vital Signs/Intake and Output Vital Signs (last 24 hours): Temp Pulse Resp BP Pulse Ox 97.8 F 58 L 16 118/65 94 L 02/21/17 17:48 02/21/17 17:48 02/21/17 17:48 02/21/17 17:48 02/21/17 06:00 Intake and Output: 02/21/17 02/21/17 06:59 18:59 Intake Total 800 1100 Output Total 1100 Balance -300 1100 - Medications Medications: Current Medications Acetaminophen (Tylenol 325mg Tab) 650 mg PO Q6H PRN PRN Reason: Fever >100.4 F Last Admin: 02/18/17 23:48 Dose: 650 mg Allopurinol (Zyloprim) 300 mg PO DAILY [facility] Last Admin: 02/21/17 09:52 Dose: 300 mg Aspirin (Aspirin Chewable) 81 mg PO DAILY [facility] Last Admin: 02/21/17 09:50 Dose: 81 mg Enoxaparin Sodium (Lovenox) 40 mg SC DAILY [facility] PRN Reason: Protocol Last Admin: 02/21/17 09:52 Dose: 40 mg Ferrous Sulfate (Feosol) 324 mg PO BID [facility] Last Admin: 02/21/17 09:53 Dose: 324 mg Furosemide (Lasix) 40 mg PO BID [facility] Last Admin: 02/21/17 09:50 Dose: 40 mg Home Med (Home Med) 1 unit PO DAILY [facility] Last Admin: 02/21/17 13:54 Dose: Not Given Cefazolin Sodium 2 gm/ Sodium (Chloride) 100 mls @ 200 mls/hr IVPB Q8 [facility] PRN Reason: Protocol Last Admin: 02/21/17 15:14 Dose: 200 mls/hr Sodium Chloride (Sodium Chloride 0.9%) 1,000 mls @ 100 mls/hr IV .Q10H [facility] Last Admin: 02/20/17 21:00 Dose: 100 mls/hr Levetiracetam (Keppra) 500 mg PO BID [facility] Last Admin: 02/21/17 09:53 Dose: 500 mg Pantoprazole Sodium (Protonix Ec Tab) 40 mg PO 0600 [facility] Last Admin: 02/21/17 06:08 Dose: 40 mg Potassium Chloride (Klor-Con 10) 10 meq PO BRK [facility] Last Admin: 02/21/17 09:53 Dose: 10 meq Potassium Phos/Sodium Phos (Neutra-Phos) 1 pkt PO TID [facility] Last Admin: 02/21/17 15:14 Dose: 1 pkt - Labs Labs: 02/20/17 06:15 02/20/17 06:15 PT 12.0 Seconds (9.9-11.8) H 02/18/17 10:30 INR 1.11 (0.93-1.08) H 02/18/17 10:30 APTT 23.5 Seconds (23.7-30.8) L 02/18/17 10:30
== END 2017-02-21 18:56 | disposition left against medical advice (07) | DRG 872 ==
LOC: ED 10:06 → ERH 13:55 → 2RNO 15:15
PROVIDERS: ADMIT Internal Medicine; ATTEND Internal Medicine
DX: A40.1 Sepsis due to streptococcus, group B (principal); R65.20 Severe sepsis without septic shock; N17.9 Acute kidney failure, unspecified; R56.9 Unspecified convulsions; Z68.41 Body mass index [BMI] 40.0-44.9, adult; N39.0 Urinary tract infection, site not specified; L03.115 Cellulitis of right lower limb; L03.314 Cellulitis of groin; E66.01 Morbid (severe) obesity due to excess calories; E83.39 Other disorders of phosphorus metabolism; E87.6 Hypokalemia; G47.33 Obstructive sleep apnea (adult) (pediatric); H91.90 Unspecified hearing loss, unspecified ear; I10 Essential (primary) hypertension; I25.10 Atherosclerotic heart disease of native coronary artery without angina pectoris; K21.9 Gastro-esophageal reflux disease without esophagitis; Z90.49 Acquired absence of other specified parts of digestive tract; Z95.5 Presence of coronary angioplasty implant and graft; Z98.84 Bariatric surgery status; R40.2412 Glasgow coma scale score 13-15, at arrival to emergency department; R00.0 Tachycardia, unspecified; R82.4 Acetonuria; R31.9 Hematuria, unspecified; D64.9 Anemia, unspecified; G47.30 Sleep apnea, unspecified; R55 Syncope and collapse; V47.5XXA Car driver injured in collision with fixed or stationary object in traffic accident, initial encounter; Y92.410 Unspecified street and highway as the place of occurrence of the external cause; R94.01 Abnormal electroencephalogram [EEG]